=== PATIENT | male | born 1990 | race Caucasian/White ===

== ENCOUNTER 2022-12-03 19:17 | Emergency (ER) | payer SELFPAY ==
[2022-12-03 19:19] VITALS: BP 128/82; PULSE 108; RESP 19; TEMP 36.8; O2SAT 96; BMI 20.6
[2022-12-03 20:00] VITALS: BP 135/96; PULSE 90; RESP 18; O2SAT 98
--- NOTE | 2022-12-03 20:11 | PC.NURSE ---
rounded on patient, visitor at bedside, no needs at time. pt. informed that doctor was in with another patient but would be in shortly, patient acknowledges understanding and is fine
--- NOTE | 2022-12-03 20:15 | XR_ITS ---
PROCEDURE INFORMATION: Exam: XR Left Hand Exam date and time: 12/03/2022 8:13 PM Age: 32 years old Clinical indication: Pain; Finger(s); Left; Additional info: Knife through thumbnail, rule out FX TECHNIQUE: Imaging protocol: Radiologic exam of the left hand. Views: 3 or more views. COMPARISON: No relevant prior studies available. FINDINGS: Bones/joints: No acute fracture or malalignment. Soft tissues: No retained radiopaque foreign body. IMPRESSION: No acute findings.
--- NOTE | 2022-12-03 20:31 | HMH.EDGENADL ---
Discharge Plan Disposition Patient Disposition: Home, Self-Care Prescriptions Prescriptions: New cefadroxil 500 mg capsule 500 mg PO BID 5 Days Qty: 10 0RF No Action warfarin 10 mg Tablet 10 mg PO DAILY hydroxyzine HCl 50 mg Tablet 50 mg PO BID Referrals Follow up/Referrals: Provider,Referral, [Primary Care Provider] - See instructions Activity Restrictions/Add. Instructions Additional Instructions/Restrictions: Call your family doctor to establish care for this visit to the emergency department and schedule follow-up within 48 hours to ensure improvement. If you have any worsening of your condition or any other concerning signs or symptoms, return to the emergency department or your primary care doctor for further evaluation. Antibiotic twice daily for 5 days Clinical Impressions Clinical Impression: Hand laceration Qualifiers: Encounter type: initial encounter Foreign body presence: without foreign body Laterality: left Qualified Code(s): S61.412A - Laceration without foreign body of left hand, initial encounter Instructions Patient Instructions: DI for Laceration Repair Discharge ED Provider: José Miguel Douglas General Adult HPI General Chief complaint: Wound/Laceration Stated complaint: AO left thumb laceration Time Seen by Provider: 12/03/22 19:42 Mode of Arrival: Ambulatory Source of Information: Patient Limitations: No Limitations Description of Symptoms (Recalled from ER Triage Doc. by RN): 32 M presents from work after hitting the top of his left tumb through the finger nail with a kitchen knife at work. This occurred approximately 30 minutes ago. Patient reports taking Warfarin daily r/t a mechanical heart valve. Bleeding is controlled. NAD otherwise. Last tetanus shot was 3 years ago. History of Present Illness HPI narrative: 32-year-old male with history of congenital aortic stenosis status post mechanical valve currently on warfarin presenting with left thumb injury. Patient was cutting food at job just prior to arrival. Went through his left thumbnail. No other injury was sustained. Patient taking warfarin as prescribed Related Data Home Medications Medication Instructions Recorded Confirmed hydroxyzine HCl 50 mg tablet 50 mg PO BID Anxiety 12/03/22 12/03/22 warfarin 10 mg tablet 10 mg PO DAILY Blood Thinner 12/03/22 12/03/22 Previous Rx's Medication Instructions Recorded cefadroxil 500 mg capsule 500 mg PO BID 5 days #10 caps 12/03/22 Allergies Allergy/AdvReac Type Severity Reaction Status Date / Time No Known Allergies Allergy Verified 12/03/22 19:30 [facility] Disclaimer: The information contained in this section may have been updated after the patient was seen, as this information can be updated by other users. Medical History (Updated 12/03/22 @ 22:34 by José Miguel Douglas MD) Anxiety Depression Surgical History (Updated 12/03/22 @ 19:29 by Gurmeet Mosher, RN) Mechanical heart valve present Family History (Updated 12/03/22 @ 19:30 by Gurmeet Mosher, RN) Other No significant family history Social History Smoking Status: Current every day smoker alcohol intake: former current occupational status: employed and unemployed Travel in the last 8 weeks: None ROS Obtained: Yes All systems reviewed & no additional complaints except as documented Physical Exam General General appearance: alert, in no apparent distress and other ( ) Head Head exam: atraumatic and normocephalic Eye Eye exam: Present normal appearance, PERRL and EOMI ENT ENT exam: Present mucous membranes moist Neck Neck exam: Present normal inspection, full ROM and trachea midline Respiratory Respiratory exam: Absent respiratory distress, wheezes, stridor, accessory muscle use or prolonged expiratory phase Cardiovascular Cardiovascular exam: Present regular rate and normal rhythm Abdominal Exam Abdominal ex
[2022-12-03 21:31] VITALS: BP 109/75; PULSE 92; RESP 20; O2SAT 96
[2022-12-03 22:41] VITALS: BP 120/83; PULSE 84; RESP 19; TEMP 36.8; O2SAT 97
== END 2022-12-03 22:41 | disposition home or self-care (01) ==
PROVIDERS: Emergency Provider Emergency Medicine
DX: S61.412A Laceration without foreign body of left hand, initial encounter (principal); F41.9 Anxiety disorder, unspecified; F32.A Depression, unspecified; Z95.2 Presence of prosthetic heart valve; Z79.01 Long term (current) use of anticoagulants; W26.0XXA Contact with knife, initial encounter; Y99.0 Civilian activity done for income or pay; F17.200 Nicotine dependence, unspecified, uncomplicated
CPT/HCPCS: 73130; 99283